=== PATIENT | male | born 1995 | race Caucasian/White ===

== ENCOUNTER → 2017-07-11 | Outpatient (CLI) | payer OTHER | LOC: LABWHC1 09:31 | PROVIDERS: ATTEND Psychiatry & Neurology Psychiatry | DX: F31.9 Bipolar disorder, unspecified (principal) | CPT/HCPCS: 36415; 80164; 84450; 84460 ==

== ENCOUNTER 2017-08-14 14:29 | Emergency (ER) | payer OTHER ==
[2017-08-14 15:06] VITALS: BP 131/80; PULSE 97; RESP 20; TEMP 98.1
--- NOTE | 2017-08-14 15:42 | XR ---
Exam: Right hand complete HISTORY: Injury today with pain. 4 views right hand were obtained. FINDINGS: No acute fracture or subluxation is identified. No radiopaque foreign body is identified. IMPRESSION: No acute abnormality is identified.
--- NOTE | 2017-08-14 15:43 | XR ---
Exam: Right wrist complete HISTORY: Injury with pain. 3 views right wrist were obtained. No acute fracture subluxation is identified. There is no radiopaque foreign body. Soft tissue structu res are unremarkable. IMPRESSION: No acute abnormality identified.
--- NOTE | 2017-08-14 16:33 | ED ---
Upper Extremity HPI - General Chief Complaint: Extremity Injury, Upper Stated Complaint: wrist injury Time Seen by Provider: 08/14/17 16:12 Source: patient Mode of arrival: ambulatory Limitations: no limitations - History of Present Illness Initial Comments: 22-year-old male patient presents for evaluation of right wrist pain. Patient states that he injured it somehow yesterday however is unable to recall exactly the mechanism of injury. He states that he did strike the wrist against something, but did not fall. Patient states that it hurts with any type of movement, or palpation of the wrist. He denies any numbness or tingling to his hand. Denies any pain in his forearm or elbow. Denies any bruising, color change, or rash.Patient denies any headache, neck pain, back pain, chest pain, shortness of breath, dizziness, weakness, abdominal pain, nausea, vomiting, or difficulties with bowel movements or urination. Patient has a past medical history significant for autism. - Related Data Home Medications Medication Instructions Recorded Confirmed Divalproex [Depakote] 250 mg PO QAM 11/23/16 08/14/17 Divalproex [Depakote] 500 mg PO HS 11/23/16 08/14/17 traZODone HCL [Desyrel] 200 mg PO HS 11/23/16 08/14/17 busPIRone HCl [Buspar] 5 mg PO BID 08/14/17 08/14/17 Allergies Allergy/AdvReac Type Severity Reaction Status Date / Time No Known Allergies Allergy Verified 08/14/17 16:27 Review of Systems ROS Statement: Those systems with pertinent positive or pertinent negative responses have been documented in the HPI. ROS Other: All systems not noted in ROS Statement are negative. Past Medical History Past Medical History: No Reported History Additional Past Medical History / Comment(s): autism History of Any Multi-Drug Resistant Organisms: None Reported Past Surgical History: Ear Surgery Past Psychological History: ADD/ADHD Smoking Status: Never smoker Past Alcohol Use History: None Reported Past Drug Use History: None Reported General Exam Limitations: no limitations General appearance: alert, in no apparent distress Head exam: Present: atraumatic, normocephalic, normal inspection Eye exam: Present: normal appearance, PERRL, EOMI. Absent: scleral icterus, conjunctival injection, periorbital swelling Neck exam: Present: normal inspection Respiratory exam: Present: normal lung sounds bilaterally. Absent: respiratory distress, wheezes, rales, rhonchi, stridor Cardiovascular Exam: Present: regular rate, normal rhythm, normal heart sounds. Absent: systolic murmur, diastolic murmur, rubs, gallop, clicks Extremities exam: Present: normal inspection, tenderness (Tenderness over the medial and lateral wrist, over the anatomical snuffbox.), normal capillary refill, other (Skin is pink, warm, and dry. Cap refills less than 3 seconds. No evidence of ecchymosis, swelling, or rash.). Absent: full ROM (Decreased range of motion due to pain), pedal edema, joint swelling, calf tenderness Neurological exam: Present: alert, oriented X3, CN II-XII intact Psychiatric exam: Present: normal affect, normal mood Skin exam: Present: warm, dry, intact, normal color. Absent: rash Course Vital Signs 08/14/17 15:04 Temperature 98.1 F Pulse Rate 97 Respiratory 20 Rate Blood Pressure 131/80 O2 Sat by Pulse 99 Oximetry Procedures - Orthopedic Splinting/Casting Injury #1 Side: right Upper Extremity Injury Location: wrist Upper Extremity Immobilizer: thumb spica Additional Comments: After splint application skin is pink, warm, and dry. Cap refill less than 3 seconds. Patient is able to move the fingers without difficulty. Denies any numbness or tingling. Medical Decision Making - Medical Decision Making 22-year-old male patient presented for evaluation of right wrist that started yesterday. X-ray is obtained and showed no acute osseous abnormalities. Patient did have some tenderness over the anatomical snuffbox so he was placed in a thumb spica splint. Patient neurovascular status was intact after splint application. He was given a copy of his x-ray and instructed to follow-up with orthopedic physician as soon as possible. Parent was instructed to call make this appointment tomorrow. He is instructed to take Tylenol for pain control. Instructed to rest, ice, and elevate the extremity. He is instructed to return here immediately for any new, worsening, or concerning symptoms. - Radiology Data Radiology results: report reviewed, image reviewed 3 views of the right wrist were obtained and showed no acute fractures or subluxation. There is no radiopaque foreign body. Soft tissue structures are unremarkable. Impression by Dr. Nicola shows no acute abnormality. 4 views of the right hand were obtained and showed no acute fracture or subluxation. No radiopaque foreign body. Impression by Dr. Petersen shows no acute abdomen amount. Disposition Clinical Impression: Occult fracture of scaphoid, Wrist pain Disposition: HOME SELF-CARE Condition: Good Instructions: Wrist Fracture in Adults (ED) Additional Instructions: Keep splint in place until follow-up with orthopedic physician. Take disc with you to your appointment. Call for an appointment tomorrow morning. Rest, ice, and elevate the extremity. Take [id number] Tylenol for pain control. Return here immediately for any new, worsening, or concerning symptoms. Referrals: Elroy Sanchez MD [Primary Care Provider] - 1-2 days Jovany Soriano MD [STAFF PHYSICIAN] - 1-2 days Time of Disposition: 16:33
== END 2017-08-14 16:43 | disposition home or self-care (01) ==
LOC: EC 14:29
DX: S62.001A Unspecified fracture of navicular [scaphoid] bone of right wrist, initial encounter for closed fracture (principal); F84.0 Autistic disorder; F90.9 Attention-deficit hyperactivity disorder, unspecified type; Z79.899 Other long term (current) drug therapy; W22.09XA Striking against other stationary object, initial encounter
CPT/HCPCS: 29125; 99283

== ENCOUNTER 2018-05-28 16:37 | Emergency (ER) | payer OTHER ==
[2018-05-28 16:43] VITALS: BP 119/82; PULSE 100; RESP 20; TEMP 98.4
--- NOTE | 2018-05-28 16:54 | ED ---
General Adult HPI - General Chief complaint: Extremity Injury, Lower Stated complaint: Right Ankle Pain Time Seen by Provider: 05/28/18 16:43 Source: patient, RN notes reviewed Mode of arrival: ambulatory Limitations: no limitations - History of Present Illness Initial comments: This is a 22-year-old male who presents to the emergency department with chief complaint of right ankle pain for the past one month. Patient reports breaking his right ankle twice in the past. He states that he has "come down on it wrong " at least 5 times over the past one month. He states that today he was playing with his small cousins and he again "came down on it wrong." He complains of pain within the joint itself; unable to localize pain. States he has been bearing weight and ambulating normally. Denies fever, chills, chest pain, shortness of breath, abdominal pain, nausea or vomiting, numbness or tingling, headache or vision changes. - Related Data Home Medications Medication Instructions Recorded Confirmed Divalproex [Depakote] 250 mg PO QAM 11/23/16 08/14/17 Divalproex [Depakote] 500 mg PO HS 11/23/16 08/14/17 traZODone HCL [Desyrel] 200 mg PO HS 11/23/16 08/14/17 busPIRone HCl [Buspar] 5 mg PO BID 08/14/17 08/14/17 Allergies Allergy/AdvReac Type Severity Reaction Status Date / Time No Known Allergies Allergy Verified 05/28/18 16:42 Review of Systems ROS Statement: Those systems with pertinent positive or pertinent negative responses have been documented in the HPI. ROS Other: All systems not noted in ROS Statement are negative. Past Medical History Past Medical History: No Reported History Additional Past Medical History / Comment(s): autism History of Any Multi-Drug Resistant Organisms: None Reported Past Surgical History: Ear Surgery Past Psychological History: ADD/ADHD Smoking Status: Never smoker Past Alcohol Use History: None Reported Past Drug Use History: None Reported General Exam - General Exam Comments Initial Comments: General: Awake and alert, well-developed; in no apparent distress. HEENT: Head atraumatic, normocephalic. Pupils are equal, round and reactive to light. Extraocular movements intact. Oropharynx moist without erythema or exudate. Neck: Supple. Normal ROM. Cardiovascular: Regular rate and rhythm. No murmurs, rubs or gallops. Chest symmetrical. Respiratory: Lungs clear to auscultation bilaterally. No wheezes, rales or rhonchi. Normal respiratory effort with no use of accessory muscles. Musculoskeletal: Normal range of motion of the right ankle. No tenderness on palpation of the foot, ankle or proximal tib/fib. Mild localized soft tissue swelling to the medial aspect of the right ankle. No bony point tenderness. Sensation is intact. Pedal pulses are 2+ equal and palpable bilaterally. Skin: [place], warm and dry without rashes or lesions. Neurological: Alert and oriented x3. CN II-XII grossly intact. Speech is fluent and answers are appropriate. No focal neuro deficits. Psychiatric: Normal mood and affect. No overt signs of depression or anxiety noted. Limitations: no limitations Course Vital Signs 05/28/18 16:40 Temperature 98.4 F Pulse Rate 100 Respiratory 20 Rate Blood Pressure 119/82 O2 Sat by Pulse 98 Oximetry Medical Decision Making - Medical Decision Making This is a 22-year-old male who presents to the emergency department with chief complaint of right ankle pain. Patient reports twisting his ankle at least 5 times over the past one month. He states that he "came down on it wrong" again earlier today. He states he has been bearing weight and ambulating normally, however feels pain within the ankle joint. There is mild soft tissue swelling to the medial aspect of the right ankle. Patient has normal range of motion and there is no tenderness on palpation. He is neurovascularly intact. X-ray of the right ankle revealed no acute fractures or dislocations. Recommended following up with primary care provider. Patient's vital signs are stable and he is in no acute distress. He will be discharged home at this time. All questions answered. - Radiology Data Radiology results: report reviewed, image reviewed X-ray right ankle impression: There is no acute fracture or dislocation in the right ankle. Generalized soft tissue swelling. Calcific density posterior to the ankle joint consistent with a partially calcified or fused os trigonum or a prominent process of the talus. As read by Dr. Tello. Disposition Clinical Impression: Ankle sprain and strain Disposition: HOME SELF-CARE Condition: Good Instructions: Ankle Sprain (ED), RICE Therapy (ED) Additional Instructions: Please follow up with primary care provider within 1-2 days. Return to emergency department if symptoms should worsen or any concerns arise. Is patient prescribed a controlled substance at d/c from ED?: No Referrals: Caryn Calderon MD [Primary Care Provider] - 1-2 days Time of Disposition: 17:13
--- NOTE | 2018-05-28 17:08 | XR ---
EXAMINATION TYPE: XR ankle complete RT DATE OF EXAM: 05/28/2018 CLINICAL HISTORY: Pain TECHNIQUE: Frontal, lateral and oblique images of the right ankle are obtained. COMPARISON: None. FINDINGS: There is no acute fracture/dislocation evident in the right ankle. The ankle mortise appe ars within normal limits. Generalized soft tissue swelling. Calcific density projecting posterior to the ankle joint consistent with either prominent posterior process of the talus or partial fusion of an os trigonum to the calcaneus. IMPRESSION: There is no acute fracture or dislocation in the right ankle. Generalized Soft tissue swelling. Calcific density posterior to the ankle joint consistent with a partially calcified are fused os trig onum or a prominent posterior process of the talus.
== END 2018-05-28 17:27 | disposition home or self-care (01) ==
LOC: SUPCPDRO 16:37 → EC 16:37
DX: S93.401A Sprain of unspecified ligament of right ankle, initial encounter (principal); S96.911A Strain of unspecified muscle and tendon at ankle and foot level, right foot, initial encounter; Z79.899 Other long term (current) drug therapy; X50.1XXA Overexertion from prolonged static or awkward postures, initial encounter; Y93.89 Activity, other specified
CPT/HCPCS: 73610; 99283; L4350

== ENCOUNTER 2022-11-12 11:47 | Emergency (ER) | payer OTHER ==
[2022-11-12 12:06] VITALS: RESP 18
--- NOTE | 2022-11-12 13:17 | XR ---
EXAMINATION TYPE: XR chest 2V DATE OF EXAM: 11/12/2022 COMPARISON: 09/11/2018 INDICATION: Cough TECHNIQUE: Frontal and lateral views of the chest are obtained. FINDINGS: The heart size is normal. The pulmonary vasculature is normal. The lungs are clear. IMPRESSION: 1. No acute pulmonary process. Follow-up can be performed as clinically indicated
--- NOTE | 2022-11-12 13:32 | ED ---
General Adult HPI - General Chief complaint: Upper Respiratory Infection Stated complaint: Cough Time Seen by Provider: 11/12/22 12:08 Source: patient, RN notes reviewed Mode of arrival: ambulatory Limitations: no limitations - History of Present Illness Initial comments: 27-year-old male presents emergency Department with chief complaint of cough congestion sore throat. Patient states symptoms started last few days. Patient had subjective fever, mild bodyaches minimal headache. No nausea vomiting diarrhea constipation no sick contacts. Patient offers no other associated complaints. - Related Data Home Medications Medication Instructions Recorded Confirmed Divalproex [Depakote] 250 mg PO QAM 11/23/16 08/14/17 Divalproex [Depakote] 500 mg PO HS 11/23/16 08/14/17 traZODone HCL [Desyrel] 200 mg PO HS 11/23/16 08/14/17 busPIRone HCl [Buspar] 5 mg PO BID 08/14/17 08/14/17 Allergies Allergy/AdvReac Type Severity Reaction Status Date / Time Penicillins Allergy Unknown Verified 11/12/22 12:06 Bug Bites Allergy Swelling Uncoded 11/12/22 12:06 Review of Systems ROS Statement: Those systems with pertinent positive or pertinent negative responses have been documented in the HPI. ROS Other: All systems not noted in ROS Statement are negative. Past Medical History Past Medical History: No Reported History Additional Past Medical History / Comment(s): autism History of Any Multi-Drug Resistant Organisms: None Reported Past Surgical History: Ear Surgery Past Psychological History: ADD/ADHD Smoking Status: Never smoker Past Alcohol Use History: None Reported Past Drug Use History: None Reported General Exam Limitations: no limitations General appearance: alert, in no apparent distress Head exam: Present: atraumatic, normocephalic, normal inspection Eye exam: Present: normal appearance, PERRL, EOMI. Absent: scleral icterus, conjunctival injection, periorbital swelling ENT exam: Present: normal exam, normal oropharynx, mucous membranes moist Neck exam: Present: normal inspection, full ROM. Absent: tenderness, meningismus, lymphadenopathy Respiratory exam: Present: normal lung sounds bilaterally. Absent: respiratory distress, wheezes, rales, rhonchi, stridor Cardiovascular Exam: Present: regular rate, normal rhythm, normal heart sounds. Absent: systolic murmur, diastolic murmur, rubs, gallop, clicks GI/Abdominal exam: Present: soft, normal bowel sounds. Absent: distended, tenderness, guarding, rebound, rigid Course Vital Signs 11/12/22 12:04 Temperature 98.0 F Pulse Rate 100 Respiratory 18 Rate Blood Pressure 124/80 O2 Sat by Pulse 96 Oximetry Medical Decision Making - Medical Decision Making 27 show male presented for cough and cold-like symptoms. Patient is COVID-19 positive. Patient is in stable condition discharged with close follow-up return parameters discussed. - Lab Data Lab Results 11/12/22 Range/Units 12:07 Influenza Type A (PCR) Not Detected (Not Detectd) Influenza Type B (PCR) Not Detected (Not Detectd) RSV (PCR) Not Detected (Not Detectd) SARS-CoV-2 (PCR) Detected A (Not Detectd) Disposition Clinical Impression: COVID-19 Disposition: HOME SELF-CARE Condition: Stable Instructions (If sedation given, give patient instructions): COVID-19 (Coronavirus Disease 2019) (ED) Additional Instructions: Please return to the Emergency Department if symptoms worsen or any other concerns. Is patient prescribed a controlled substance at d/c from ED?: No Referrals: Rosa Williamson MD [Primary Care Provider] - 1-2 days Time of Disposition: 13:32
[2022-11-12 13:50] VITALS: BP 121/84; PULSE 91; TEMP 98.1
== END 2022-11-12 13:44 | disposition home or self-care (01) ==
LOC: EC 11:47
DX: U07.1 COVID-19 (principal); F90.9 Attention-deficit hyperactivity disorder, unspecified type; Z88.0 Allergy status to penicillin; Z91.038 Other insect allergy status
CPT/HCPCS: 71046; 87636; 99283

== ENCOUNTER 2023-10-18 06:42 | Day surgery (SDC) | payer OTHER ==
[~2023-10-18 06:42] MED LIST: LACTATED RINGERS 1,000 ML IV SCH
[2023-10-18 07:30] VITALS: TEMP 97.5
[2023-10-18] MEDS ORDERED: LIDOCAINE 1% INJ 10MG/ML (20 ML MDV) ONE (08:00)
[2023-10-18] MEDS ORDERED: PROPOFOL 10 MG/ML 20 ML VIAL IV ONE (08:00)
--- NOTE | 2023-10-18 08:15 | P.PCN ---
Date of Procedure: 10/18/23 Procedure(s) Performed: BRIEF HISTORY: Patient is a 28-year-old, pleasant, white male scheduled for an upper endoscopy as a part of evaluation of long-standing history of GERD. PROCEDURE PERFORMED: Esophagogastroduodenoscopy with biopsy. PREOPERATIVE DIAGNOSIS: Long-standing history of GERD. IV sedation per anesthesia. PROCEDURE: After informed consent was obtained, the patient was brought into the endoscopy unit. IV sedation was administered by Anesthesia under continuous monitoring. Initially the Olympus GIF-140 video endoscope was inserted into the mouth. Esophagus intubated without any difficulty. It was gradually advanced into the stomach and duodenum and carefully examined. The bulb and the second part of the duodenum appeared normal. The scope at this time was withdrawn to the stomach, adequately insufflated with air, and upon careful examination, mucosa of the antrum, and mild gastritis and biopsies were done from this area. Mucosa of the body, cardia and the fundus appeared normal. The scope was then withdrawn into the esophagus. The GE junction was located at 40 cm from the incisors. The esophagus appeared normal. There were no erosions or ulcerations seen and the patient tolerated the procedure well. IMPRESSION: 1. Mild antral gastritis. 2. No evidence of esophagitis or Spangler's esophagus. RECOMMENDATIONS: The findings of this examination were discussed with the patient as well as his family. Follow with the biopsy results. He was advised to continue with current medications and follow antireflux measures. .
[2023-10-18 08:54] VITALS: PULSE 78; RESP 18
[2023-10-18 08:55] VITALS: BP 137/78
== END 2023-10-18 09:22 | disposition home or self-care (01) ==
LOC: ORWHC2ENDO 06:42
PROVIDERS: ATTEND Internal Medicine Gastroenterology
DX: K29.50 Unspecified chronic gastritis without bleeding (principal); K21.9 Gastro-esophageal reflux disease without esophagitis; E78.5 Hyperlipidemia, unspecified; Z88.0 Allergy status to penicillin; Z79.899 Other long term (current) drug therapy
CPT/HCPCS: 43239; J2001; J2704; 88305

== ENCOUNTER 2023-12-24 11:34 | Emergency (ER) | payer OTHER ==
[2023-12-24 11:59] VITALS: TEMP 98.2
--- NOTE | 2023-12-24 12:43 | ED ---
Abdominal Pain HPI - General Chief Complaint: Abdominal Pain Stated Complaint: Lower back pain, Trouble going to the bathroom Time Seen by Provider: 12/24/23 12:08 Source: patient Mode of arrival: ambulatory Limitations: no limitations - History of Present Illness Initial Comments: This patient is a 28-year-old man with history of previous kidney stone. He states she is having pain similar to previous episodes. He states he was awakened by pain around 5 AM. The pain is very similar to previous. He is also having some urinary frequency but urinating very little. He has not noted hematuria. No systemic symptoms. MD Complaint: flank pain Onset/Timin -: hour(s) Location: R flank Radiation: other Migration to: no migration (Groin) Severity: moderate Quality: sharp Consistency: colicky Improves With: nothing Worsens With: nothing Associated Symptoms: other (Frequent see) - Related Data Home Medications Medication Instructions Recorded Confirmed Divalproex [Depakote] 250 mg PO QA 11/23/16 10/18/23 Divalproex [Depakote] 500 mg PO HS 11/23/16 10/18/23 traZODone HCL [Desyrel] 100 mg PO HS 11/23/16 10/18/23 busPIRone HCl [Buspar] 5 mg PO BID 08/14/17 10/18/23 Atorvastatin [Lipitor] 20 mg PO HS 10/13/23 10/18/23 Cetirizine HCl 10 mg PO HS 10/13/23 10/18/23 Previous Rx's Medication Instructions Recorded HYDROcodone/APAP 5-325MG [[place] 1 tab PO Q4HR PRN 3 Days #18 tab 12/24/23 5-325] Ondansetron Odt [Zofran ODT] 4 mg PO Q8HR PRN #10 tab 12/24/23 Tamsulosin [Flomax] 0.4 mg PO DAILY #14 cap 12/24/23 Allergies Allergy/AdvReac Type Severity Reaction Status Date / Time Penicillins Allergy Unknown Verified 10/18/23 07:17 Bug Bites Allergy Swelling Uncoded 10/18/23 07:17 Review of Systems ROS Statement: Those systems with pertinent positive or pertinent negative responses have been documented in the HPI. ROS Other: All systems not noted in ROS Statement are negative. Constitutional: Denies: fever, chills Respiratory: Denies: cough, dyspnea Cardiovascular: Denies: chest pain, palpitations, edema Gastrointestinal: Reports: as per HPI, abdominal pain. Denies: nausea, vomiting, diarrhea, constipation, melena, hematochezia Genitourinary: Reports: frequency. Denies: dysuria, hematuria, discharge, testicular pain Musculoskeletal: Denies: back pain Skin: Denies: rash Neurological: Denies: headache, weakness, numbness Past Medical History Past Medical History: Hyperlipidemia Additional Past Medical History / Comment(s): autism History of Any Multi-Drug Resistant Organisms: None Reported Past Surgical History: Ear Surgery Past Anesthesia/Blood Transfusion Reactions: No Reported Reaction Additional Past Anesthesia/Blood Transfusion Reaction / Comment(s): slow to wake up Past Psychological History: ADD/ADHD Smoking Status: Never smoker General Exam Limitations: no limitations General appearance: alert, in no apparent distress Head exam: Present: atraumatic, normocephalic Eye exam: Present: normal appearance. Absent: scleral icterus, conjunctival injection ENT exam: Present: normal oropharynx Neck exam: Present: normal inspection Respiratory exam: Present: normal lung sounds bilaterally. Absent: respiratory distress, wheezes, rales, rhonchi, stridor Cardiovascular Exam: Present: regular rate, normal rhythm, normal heart sounds. Absent: systolic murmur, diastolic murmur, rubs, gallop GI/Abdominal exam: Present: soft. Absent: distended, tenderness, guarding, r ebound, rigid, mass Extremities exam: Present: normal inspection, normal capillary refill. Absent: pedal edema, calf tenderness Back exam: Present: normal inspection, CVA tenderness (R). Absent: CVA tenderness (L), paraspinal tenderness, vertebral tenderness Neurological exam: Present: alert Skin exam: Present: warm, dry, intact, normal color. Absent: rash Course Vital Signs 12/24/23 12/24/23 12/24/23 11:48 13:00 14:46 Temperature 98.2 F Pulse Rate 80 80 78 Respiratory 16 20 18 Rate Blood Pressure 150/93 144/86 148/84 O2 Sat by Pulse 98 99 99 Oximetry Medical Decision Making - Medical Decision Making The patient had computed tomography scan of the abdomen and pelvis which I interpreted as showing presence of ureteral stone with some associated hydronephrosis on the right side. Was pt. sent in by a medical professional or institution (MARYJO Connell, WELDING MACHINE OPERATOR, urgent ca re, hospital, or [facility]cf...) When possible be specific @ -[No] Did you speak to anyone other than the patient for history (EMS, parent, family, police, friend...)? What history was obtained from this source @ -[No] Did you review nursing and triage notes (agree or disagree)? Why? @ -[I reviewed and agree with nursing and triage notes] Were old charts reviewed (outside hosp., previous admission, EMS record, old EKG, old radiological studies, urgent care reports/EKG's, [facility] records)? Report findings @ -[No old charts were reviewed] Differential Diagnosis (chest pain, altered mental status, abdominal pain women, abdominal pain men, vaginal bleeding, weakness, fever, dyspnea, syncope, headache, dizziness, GI bleed, back pain, seizure, CVA, palpatations, mental health, musculoskeletal)? @ -[Differential Abdominal Pain Men: Appendicitis, cholecystitis, diverticulosis, ischemic bowel, pancreatitis, hepatitis, UTI, gastroenteritis, AAA, incarcerated hernia, bowel obstruction, constipation, inflammatory bowel, hepatitis, peptic ulcer disease, splenic infarction, perforated viscus, testicular torsion, this is not meant to be an all-inclusive list EKG interpreted by me (3pts min.). @ -[As above] X-rays interpreted by me (1pt min.). @ -[None done] CT interpreted by me (1pt min.). @ -[I interpreted as above U/S interpreted by me (1pt. min.). @ -[None done] What testing was considered but not performed or refused? (CT, X-rays, U/S, labs)? Why? @ -[None] What meds were considered but not given or refused? Why? @ -[None] Did you discuss the management of the patient with other professionals (professionals i.e. MARYJO Connell, WELDING MACHINE OPERATOR, lab, RT, psych nurse, social work lecturer, software reverse engineer, teacher, hospital chief financial officer, test case developer)? Give summary @ -[No] Was smoking cessation discussed for >3mins.? @ -[No] Was critical care preformed (if so, how long)? @ -[No] Were there social determinants of health that impacted care today? How? (Homelessness, low income, unemployed, alcoholism, drug addiction, transportation, low edu. Level, literacy, decrease access to med. care, skilled nursing, r ehab)? @ -[No] Was there de-escalation of care discussed even if they declined (Discuss DNR or withdrawal of care, Hospice)? DNR status @ -[No] What co-morbidities impacted this encounter? (DM, HTN, Smoking, COPD, CAD, Cancer, CVA, ARF, Chemo, Hep., AIDS, mental health diagnosis, sleep apnea, morb id obesity)? @ -[None] Was patient admitted / discharged? Hospital course, mention meds given and r oute, prescriptions, significant lab abnormalities, going to OR and other pertinent info. @ -[Patient is a 28-year-old man presenting with flank pain based on the history and physical exam kidney stone is suspected. The CT scan confirms presence of stone. The patient does have good response to medical treatment and appears amenable to outpatient course. We discussed further treatment and return parameters. Undiagnosed new problem with uncertain prognosis? @ -[No] Drug Therapy requiring intensive monitoring for toxicity (Heparin, Nitro, Insulin, Cardizem)? @ -[No] Were any procedures done? @ -[No] Diagnosis/symptom? @ -Acute kidney stone Acute, or Chronic, or Acute on Chronic? @ -[Acute Uncomplicated (without systemic symptoms) or Complicated (systemic symptoms)? @ -[Uncomplicated Side effects of treatment? @ -[No] Exacerbation, Progression, or Severe Exacerbation? @ -[No] Poses a threat to life or bodily function? How? (Chest pain, [place], [place], pneumonia, PE, COPD, DKA, ARF, appy, cholecystitis, CVA, Diverticulitis, Homicidal, Suicidal, threat to staff... and all critical care pts) @ -[No] - Lab Data Result diagrams: 12/24/23 13:13 12/24/23 13:13 Lab Results 12/24/23 12/24/23 12/24/23 Range/Units 11:57 13:13 13:13 WBC 15.8 H (3.8-10.6) k/uL RBC 5.35 (4.30-5.90) m/uL Hgb 15.4 (13.0-17.5) gm/dL Hct 45.2 (39.0-53.0) % MCV 84.5 (80.0-100.0) fL MCH 28.7 (25.0-35.0) pg MCHC 34.0 (31.0-37.0) g/dL RDW 12.4 (11.5-15.5) % Plt Count 298 (150-450) k/uL MPV 8.2 Neutrophils % 78 % Lymphocytes % 14 % Monocytes % 4 % Eosinophils % 2 % Basophils % 0 % Neutrophils # 12.4 H (1.3-7.7) k/uL Lymphocytes # 2.3 (1.0-4.8) k/uL Monocytes # 0.7 (0-1.0) k/uL Eosinophils # 0.2 (0-0.7) k/uL Basophils # 0.1 (0-0.2) k/uL Sodium 140 (137-145) mmol/L Potassium 4.1 (3.5-5.1) mmol/L Chloride 107 (98-107) mmol/L Carbon Dioxide 24 (22-30) mmol/L Anion Gap 9 mmol/L BUN 9 (9-20) mg/dL Creatinine 1.01 (0.66-1.25) mg/dL Est GFR (CKD-EPI)AfAm >90 (>60 ml/min/1.73 sqM) Est GFR (CKD-EPI)NonAf >90 (>60 ml/min/1.73 sqM) Glucose 106 H (74-99) mg/dL Calcium 9.2 (8.4-10.2) mg/dL Total Bilirubin 0.8 (0.2-1.3) mg/dL AST 29 (17-59) U/L ALT 43 (4-49) U/L Alkaline Phosphatase 86 (38-126) U/L Total Protein 7.0 (6.3-8.2) g/dL Albumin 4.2 (3.5-5.0) g/dL Urine Color Light Red Urine Appearance Cloudy (Clear) Urine pH 6.0 (5.0-8.0) Ur Specific [place] 1.024 (1.001-1.035) Urine Protein 1+ H (Negative) Urine Glucose (UA) Negative (Negative) Urine Ketones 1+ H (Negative) Urine Blood Large H (Negative) Urine Nitrite Negative (Negative) Urine Bilirubin Negative (Negative) Urine Urobilinogen <2.0 (<2.0) mg/dL Ur Leukocyte Esterase Negative (Negative) Urine RBC >182 H (0-5) /hpf Urine WBC 8 H (0-5) /hpf Urine Bacteria Rare H (None) /hpf Urine Mucus Moderate H (None) /hpf Disposition Clinical Impression: Kidney stone on right side Disposition: HOME SELF-CARE Condition: Good Instructions (If sedation given, give patient instructions): Kidney Stones (ED) Prescriptions: Tamsulosin [Flomax] 0.4 mg PO DAILY #14 cap HYDROcodone/APAP 5-325MG [[place] 5-325] 1 tab PO Q4HR PRN 3 Days #18 tab PRN Reason: Pain Ondansetron Odt [Zofran ODT] 4 mg PO Q8HR PRN #10 tab PRN Reason: Nausea Is patient prescribed a controlled substance at d/c from ED?: Yes When asked, does pt state using other controlled substances?: No If prescribed controlled substance>3 days was MAPS reviewed?: Prescribed <3 Days If opioid is for acute pain is fill amount 7 days or less?: Yes If Rx opioid, was Start Talking consent form obtained?: Yes Referrals: Rosa Williamson MD [Primary Care Provider] - 1-2 days Rick Mckeon MD [STAFF PHYSICIAN] - 1-2 days
[2023-12-24 13:19] LABS: Appearance,Urine Cloudy (Clear); Bacteria,Urine Rare /hpf; Bilirubin,Urine Negative (Negative); Blood,Urine Large (Negative); Color,Urine Light Red; Glucose,Urine (UA) Negative (Negative); Ketones,Urine 1+ (Negative); Leukocyte Esterase,Urine Negative (Negative); Mucus,Urine Moderate /hpf; Nitrite,Urine Negative (Negative); Protein,Urine 1+ (Negative); RBC,Urine >182 /hpf (0-5); Specific Gravity,Urine 1.024 (1.001-1.035); Urobilinogen,Urine <2.0 mg/dL (<2.0); WBC,Urine 8 /hpf (0-5)
[2023-12-24 13:27] LABS: Basophils # (A) 0.1 k/uL (0-0.2); Basophils % (A) 0 %; Eosinophils # (A) 0.2 k/uL (0-0.7); Eosinophils % (A) 2 %; HCT 45.2 % (39.0-53.0); HGB 15.4 gm/dL (13.0-17.5); Lymphocytes # (A) 2.3 k/uL (1.0-4.8); Lymphocytes % (A) 14 %; MCH 28.7 pg (25.0-35.0); MCV 84.5 fL (80.0-100.0); Mean Platelet Volume 8.2; Monocytes # (A) 0.7 k/uL (0-1.0); Monocytes % (A) 4 %; Neutrophils # (A) 12.4 k/uL (1.3-7.7); Neutrophils % (A) 78 %; Platelet Count 298 k/uL (150-450); RBC 5.35 m/uL (4.30-5.90); RDW 12.4 % (11.5-15.5); WBC 15.8 k/uL (3.8-10.6)
[2023-12-24 13:42] LABS: ALT 43 U/L (4-49); AST 29 U/L (17-59); African American GFR (CKD) >90 (>60 ml/min/1.73 sqM); Albumin 4.2 g/dL (3.5-5.0); Alkaline Phosphatase 86 U/L (38-126); Anion Gap 9 mmol/L; Blood Urea Nitrogen 9 mg/dL (9-20); Calcium 9.2 mg/dL (8.4-10.2); Carbon Dioxide 24 mmol/L (22-30); Chloride 107 mmol/L (98-107); Glucose 106 mg/dL (74-99); Non-African American GFR(CKD) >90 (>60 ml/min/1.73 sqM); Potassium 4.1 mmol/L (3.5-5.1); Sodium 140 mmol/L (137-145); Total Bilirubin 0.8 mg/dL (0.2-1.3)
--- NOTE | 2023-12-24 14:09 | CT ---
EXAMINATION TYPE: CT abdomen pelvis wo con DATE OF EXAM: 12/24/2023 COMPARISON: None INDICATION: RT flank pain. hx of kidney stones DLP: 1020.4 mGycm, Automated exposure control for dose reduction was used. CONTRAST: 0 mL of Isovue 300. Study performed without Oral Contrast TECHNIQUE: Axial images were obtained from above the diaphragm to the pubic rami in the axial plane a t 5 mm thick sections. Reconstructed images are reviewed on the computer in the coronal plane. FINDINGS: Limited CT sections are obtained the lung bases. The lung bases are clear. CT ABDOMEN: Liver: Normal Spleen: Normal Pancreas: Normal Adrenal glands: The adrenal glands are normal. Gallbladder: Normal Kidneys: No masses are evident. No hydronephrosis is present. No cysts are present. There is a pun ctate calculus nonobstructing calcification in the lateral right upper kidney. There is a nonobstruct ing calcification in the lower anterior left kidney. There is some minimal prominence of the right re nal collecting system. Minimal hydroureter may be present. Some adjacent inflammatory changes are not ed. At the pelvic inlet there is an obstructing 0.6 cm ureteral calcification. Series 201 image 111. Aorta: Normal Inferior vena cava: Normal. CT PELVIS: The study is without oral contrast. Loops of bowel as visualized appear unremarkable. Appendix: Normal as visualized. Urinary bladder: Normal. No urinary bladder calcifications noted. Genitourinary structures: Prostate is mild prominence Osseous structures: No suspicious lytic or sclerotic lesions. IMPRESSION: 1. 0.6 cm mildly obstructing right pelvic inlet ureteral calcification with mild hydroureter and min imal hydronephrosis. 2. Nonobstructing punctate bilateral renal stones.
[2023-12-24] MEDS: TAMSULOSIN 0.4 MG CAP.ER.24H PO STA (14:38)
[2023-12-24] MEDS: MORPHINE SULFATE 4 MG/ML SYRINGE IV STA (14:38)
[2023-12-24 15:11] VITALS: BP 148/84; PULSE 78; RESP 18
== END 2023-12-24 14:48 | disposition home or self-care (01) ==
LOC: EC 11:34
DX: N13.2 Hydronephrosis with renal and ureteral calculous obstruction (principal); E78.5 Hyperlipidemia, unspecified; F84.0 Autistic disorder; Z79.899 Other long term (current) drug therapy; Z88.0 Allergy status to penicillin; Z91.09 Other allergy status, other than to drugs and biological substances
CPT/HCPCS: 36415; 80053; 85025; 81001; 74176; 99284; 96374; J2270

== ENCOUNTER → 2024-07-12 | Outpatient (CLI) | payer OTHER ==
--- NOTE | 2024-08-09 10:02 | XR ---
Site ID [facility] Mirza Jacob ID [id number] 1995 Age/Gender: 28Y, O Order # N/A Procedure CHEST 2 VIEW Date 07/12/2024 12:19:00 PM EXAMINATION TYPE: XR chest 2V DATE OF EXAM: 07/19/2024 1:26 PM COMPARISON: None TECHNIQUE: XR chest 2V Frontal and lateral views of the chest. CLINICAL INDICATION: Male, 28 year old with history of leukocytosis; FINDINGS: Lungs/Pleura: There is no evidence of pleural effusion, focal consolidation, or pneumothorax. Pulmonary vascularity: Unremarkable. Heart/mediastinum: Cardiomediastinal silhouette is unremarkable. Musculoskeletal: No acute osseous pathology. IMPRESSION: No acute cardiopulmonary disease/process.
== END | disposition home or self-care (01) ==
LOC: RADXRMAIN 11:40
PROVIDERS: ATTEND Internal Medicine Hematology & Oncology
DX: D72.829 Elevated white blood cell count, unspecified (principal)
CPT/HCPCS: 71046

== ENCOUNTER → 2025-05-09 | Outpatient (CLI) | payer OTHER ==
[2025-05-09 14:48] VITALS: BP 117/76; PULSE 86; RESP 16; TEMP 98.1
--- NOTE | 2025-05-09 15:23 | P.SLEEP ---
History of Present Illness DATE: 05/09/2025 CONSULTATION/NEW PATIENT EVALUATION HISTORY OF PRESENT ILLNESS/SLEEP-WAKE EVALUATION: 29-year-old gentleman had b een evaluated in the sleep center for possible obstructive sleep apnea hypopnea syndrome. SLEEP SCHEDULE: Usually sleep schedule from 11:30 PM to 89 AM. FALLING ASLEEP: Usually no significant problem with falling asleep. DURING SLEEP: Patient snores and wakes up from sleep 2 times with nocturia. Positive history of grinding teeth and sleep talking no history of hypnogogical hallucinations, sleep paralysis, or cataplexy. DURING THE DAY/WAKE STATE: During the day patient has episodes of irritability, depression, anxiety. Ewing sleepiness scale is 4. Usually patient does not take naps. PAST MEDICAL HISTORY: Autistic disorder, bipolar, asthma, prediabetes, acid reflux, hyperlipidemia. PAST SURGICAL HISTORY: Ear tubes in the past. MEDICATIONS: Cetirizine 10 mg once a day, atorvastatin 20 mg once a day, famotidine 20 mg once a day, metformin 500 mg once a day, trazodone 100 mg once a day, Ventolin inhaler, Divalproex. SOCIAL HISTORY: Please see below. FAMILY HISTORY: Please see below. REVIEW OF SYSTEMS: Snoring, awakenings from sleep. No fevers. No double vision. No recent chest pain. No shortness of breath. No abdominal pain. No bleeding episodes. No blood in urine. No seizure episodes. PHYSICAL EXAMINATION: GENERAL: A pleasant patient without any distress. VITAL SIGNS: Please see below, weight 223.2 pounds, BMI 37.6. HEENT: PERRLA, EOMI. Evaluation of oropharynx showed tongue protrudes midline, low position of soft palate Mallampati 34. NECK: Supple. No JVD. Thyroid is not palpable. 20 one quarter inches in circumference. LUNGS: Clear to percussion and to auscultation. Good air exchange. No wheezing or rhonchi. HEART: S1, S2 regular. No murmurs, gallops or rubs. ABDOMEN: Soft and nontender. Bowel sounds are present. No organomegaly appreciated. EXTREMITIES: No clubbing or cyanosis. TRANSPORT TECH: Awake, alert, and oriented x3. Cranial nerves 2 to 7 intact. There is no fasciculation or atrophy noted. No focal deficits observed. ASSESSMENT: 1. Snoring, multiple awakenings from sleep, extremely low position of soft palate Mallampati 34, extremely wide neck 20-1/4 inches in circumference. Obstructive sleep apnea hypopnea syndrome. 2. Autistic disorder. 3. Bipolar. 4. Prediabetes. 5 asthma. 6 . Acid reflux. 7. Obesity, BMI 37.6. 8. Epilepsy. PLAN: 1. Polysomnography for evaluation of patient's breathing during sleep. 2. Following plan after reading sleep study. 3. Preferable position during sleep on the side. 4. No driving if patient feels any sleepiness. Patient is aware of civil and criminal liability for unsafe driving. 5. Sleep hygiene with regular sleep time for at least 7.5-8 hours. 6. Watching and losing weight. Thank you very much for referring this patient for consultation. Sincerely, Tremaine Lozano MD, PhD, FAASM. Diplomat of [place] [employer], Sleep Medicine Board by [place] [employer] [place] [employer] Administrative Services Specialist of [facility] [place] cc: Rosa Williamson MD Past Medical History Past Medical History: Asthma, GERD/Reflux, Hyperlipidemia Additional Past Medical History / Comment(s): autism, nasal drainage when I sleep, NF1 (Neurofibrotosis) History of Any Multi-Drug Resistant Organisms: None Reported Past Surgical History: Ear Surgery Additional Past Surgical History / Comment(s): Scope down the throat Past Anesthesia/Blood Transfusion Reactions: No Reported Reaction Additional Past Anesthesia/Blood Transfusion Reaction / Comment(s): slow to wake up Past Psychological History: ADD/ADHD, Bipolar Additional Psychological History / Comment(s): autism, Aspbergers spectrum Smoking Status: Never smoker, Second hand smoke exposure Past Alcohol Use History: None Reported Past Drug Use History: None Reported - Past Family History Father Family Medical History: Asthma, Diabetes Mellitus, GERD/Reflux, Sleep Apnea/CPAP/BIPAP, Thyroid Disorder Additional Family Medical History / Comment(s): Irregular heart rate, Neurofibrotosis, scoliosis, spinabifida, Type II diabetic, neuropathy, constant glaucoma surgeries, Thyroid removed - cysts Mother Family Medical History: Asthma, Diabetes Mellitus, Hypertension, Thyroid Disorder Additional Family Medical History / Comment(s): Water on the heart" (states not CHF), Thyroid cysts and cysts on pancreas Medications and Allergies Home Medications Medication Instructions Recorded Confirmed Type Divalproex [Depakote] 250 mg PO QAM 11/23/16 10/18/23 History Divalproex [Depakote] 500 mg PO HS 11/23/16 10/18/23 History traZODone HCL [Desyrel] 100 mg PO HS 11/23/16 10/18/23 History busPIRone HCl [Buspar] 5 mg PO BID 08/14/17 10/18/23 History Atorvastatin [Lipitor] 20 mg PO HS 10/13/23 10/18/23 History Cetirizine HCl 10 mg PO HS 10/13/23 10/18/23 History HYDROcodone/APAP 5-325MG [[place] 1 tab PO Q4HR PRN 3 Days #18 tab 12/24/23 Rx 5-325] Ondansetron Odt [Zofran ODT] 4 mg PO Q8HR PRN #10 tab 12/24/23 Rx Tamsulosin [Flomax] 0.4 mg PO DAILY #14 cap 12/24/23 Rx Allergies Allergy/AdvReac Type Severity Reaction Status Date / Time Penicillins Allergy Unknown Verified 10/18/23 07:17 Bug Bites Allergy Swelling Uncoded 10/18/23 07:17 Physical Exam Vitals: Vital Signs Temp Pulse Resp BP Pulse Ox 05/09/25 14:45 98.1 F 86 16 117/76 97 Intake and Output 05/09/25 05/09/25 05/09/25 06:59 14:59 22:59 Other: Weight 101.208 kg Sleep Note - Sleep Data ESS Total: 4 - Sleep Note Sleep Note: Temperature: 98.1 F Pulse Rate: 86 Respiratory Rate: 16 Blood Pressure: 117/76 SpO2: 97 Height: 5 ft 4.5 in Weight: 101.208 kg BMI: Neck Circumference: 20.2
== END ==
LOC: 3 N SLEEP 13:58
PROVIDERS: ATTEND Internal Medicine
DX: G47.33 Obstructive sleep apnea (adult) (pediatric) (principal); F84.0 Autistic disorder; F31.9 Bipolar disorder, unspecified; R73.03 Prediabetes; J45.909 Unspecified asthma, uncomplicated; K21.9 Gastro-esophageal reflux disease without esophagitis; E66.9 Obesity, unspecified; G40.909 Epilepsy, unspecified, not intractable, without status epilepticus; Z68.37 Body mass index [BMI] 37.0-37.9, adult; Z88.0 Allergy status to penicillin; Z91.048 Other nonmedicinal substance allergy status
CPT/HCPCS: 99211

== ENCOUNTER 2025-06-09 19:22 | Outpatient (CLI) | payer OTHER ==
--- NOTE | 2025-06-19 11:50 | P.PCN ---
Description of Procedure: POLYSOMNOGRAPHY REPORT PROCEDURE(S)/DATE(S): Polysomnography 06/09/2025 CLINICAL: Patient has been seen in the sleep center for evaluation of obstructive sleep apnea-hypopnea syndrome. Please see my consultation. Sleep study has been done for evaluation of patient breathing during the sleep. PROCEDURE: The standard montage for clinical polysomnography included the electroencephalogram, the electrooculogram, the mentalis surface electromyography and Lead II cardiography. The respiratory battery consisted of measurements of nasal/buccal air flow, pressure transducer measurements from nose, thoracic and/or abdominal effort and intercostal surface electromyography. Video monitoring has been done to check for any parasomnia events. Nocturnal oxyhemoglobin saturations were obtained by finger oximetry. Step-kenyon titration with positive airway pressure was utilized to control the respiratory events, if necessary. RESULTS: During the diagnostic sleep study sleep efficiency was decreased to 75.2%. Latency to sleep onset was significantly prolonged to 51.5 min. Sleep architecture showed stage NI was increased to 12.1%, Delta sleep was absent 0%, REM sleep was short 13.6%. Respiratory channel showed 0 obstructive apneas, 0 mixed apneas, 0 central apneas, 36 hypopneas with lowest oxygen level 82%. Total apnea hypopnea index was 6.2. Heart rate was in the range between 70 and 91, average 82. EMG showed 0 periodic limb movements per hour with 0 micro-arousals per hour. IMPRESSIONS: 1. Obstructive sleep apnea hypopnea syndrome. 2. No significant periodic limb movements have been documented. 3. Bipolar. 4. History of epilepsy. Please see other impressions from consultation PLAN: 1. The patient will have AutoPAP treatment for correction of respiratory abnormalities during the sleep. 2. Losing weight program. 3. Sleep hygiene with regular time in bed for at least 7-1/2 hours. 4. No driving if feeling sleepiness. Thank you very much for allowing me to participate in the management of your patient. Sincerely, Tremaine Lozano MD, PhD, FAASM. Diplomat of [place] [employer], Sleep Medicine Board by [place] [employer] Retail Loss Prevention Specialist of [facility] [place] cc: Rosa Williamson MD
== END 2025-06-10 05:20 | disposition home or self-care (01) ==
LOC: 3 N SLEEP 19:22
PROVIDERS: ATTEND Internal Medicine
DX: G47.33 Obstructive sleep apnea (adult) (pediatric) (principal); F31.9 Bipolar disorder, unspecified; Z86.69 Personal history of other diseases of the nervous system and sense organs; Z91.038 Other insect allergy status; Z88.0 Allergy status to penicillin
CPT/HCPCS: 95810